=== PATIENT | male | born 1965 | race Caucasian/White ===

== ENCOUNTER 2022-08-30 08:00 | Outpatient (CLI) | payer OTHER ==
--- NOTE | 2022-08-30 17:23 | XRAY Report ---
PROCEDURE: Thoracic Spine 2 View INDICATIONS: STRAIN OF MUSCLE AND TENDON OF UPPER BACK TECHNIQUE: 3 views of the thoracic spine were acquired. COMPARISON: None. FINDINGS: Bones: No fractures or dislocations. Degenerative endplate changes are noted in mid to lower thoraci c spine. No suspicious bony lesions. 12 pairs of ribs are noted, and appear intact where visualized. Soft tissues: No paravertebral stripe thickening. IMPRESSION: Mild degenerative disc disease in mid to lower thoracic spine. No compression fracture or spondylolis thesis. Reviewed by: Ezio Alfredo MD on 08/30/2022 5:22 PM PDT Approved by: Ezio Alfredo MD on 08/30/2022 5:22 PM PDT Station ID: [id number]
== END 2022-08-30 23:59 | disposition home or self-care (01) ==
LOC: DI.N 08:00
PROVIDERS: ATTEND Family Medicine
DX: S29.012A Strain of muscle and tendon of back wall of thorax, initial encounter (principal); M47.814 Spondylosis without myelopathy or radiculopathy, thoracic region

== ENCOUNTER 2024-02-05 00:05 | Emergency (ER) | payer OTHER ==
[2024-02-05 00:26] LABS: BASOPHILS # (AUTO) 0.1 10^3/uL (0.0-0.1); BASOPHILS % (AUTO) 0.4 %; EOSINOPHILS % (AUTO) 0.1 %; HCT - HEMATOCRIT 51.8 % (42.0-52.0); HGB - HEMOGLOBIN 17.4 g/dL (14.0-18.0); LYMPHOCYTES # (AUTO) 0.4 10^3/uL (1.5-3.5); MEAN CORPUSCULAR HEMOGLOBIN 30.1 pg (27.0-31.0); MEAN CORPUSCULAR HGB CONC 33.6 g/dL (32.0-36.0); MEAN CORPUSCULAR VOLUME 89.6 fL (80.0-94.0); MEAN PLATELET VOLUME 9.5 fL (7.4-11.4); MONOCYTES % (AUTO) 7.1 %; PLT - PLATELET COUNT 256 10^3/uL (130-450); RED BLOOD COUNT 5.78 10^6/uL (4.70-6.10); RED CELL DISTRIBUTION WIDTH 12.3 % (12.0-15.0); WHITE BLOOD COUNT 13.5 x10^3/uL (4.8-10.8)
[2024-02-05 00:48] LABS: ALBUMIN/GLOBULIN RATIO 1.7 (1.0-2.2); BILIRUBIN,TOTAL 0.8 mg/dL (0.2-1.0); CALCIUM 10.3 mg/dL (8.5-10.3); CREATININE 1.4 mg/dL (0.6-1.3); POTASSIUM 4.2 mmol/L (3.5-4.5)
[2024-02-05] MEDS: SODIUM CHLORIDE 0.9% 1,000 ML IV STA (00:57)
[2024-02-05] MEDS: ONDANSETRON 4 MG/2 ML VIAL IVP STA (00:57)
[2024-02-05 01:12] LABS: BILIRUBIN,URINE SMALL (NEGATIVE); GLUCOSE, URINE (UA) NEGATIVE (NEGATIVE); KETONES,URINE (UA) TRACE mg/dL (NEGATIVE); LEUKOCYTE ESTERASE, URINE NEGATIVE (NEGATIVE); NITRITE,URINE NEGATIVE (NEGATIVE); OCCULT BLOOD,URINE NEGATIVE (NEGATIVE); PH,URINE 5.5 PH (5.0-7.5); PROTEIN,URINE NEGATIVE (NEGATIVE); UROBILINOGEN,URINE 0.2 (NORMAL) E.U./dL (NORMAL)
--- NOTE | 2024-02-05 01:14 | ED Physician Documentation ---
PD HPI NVD - Stated complaint Stated Complaint: N/V/D - Chief complaint Chief Complaint: Abd Pain - History obtained from History obtained from: Patient, Family - History of Present Illness Timing - onset: Enter time (1899), Today Timing - duration: Hours Timing - details: Abrupt onset, Still present Associated symptoms: Dizzy, Near syncope / syncope. No: Fever, Abdominal pain, Hematochezia Contributing factors: Sick contact Improved by: Vomiting, BM Worsened by: Eating Similar symptoms before: Has not had sx before Recently seen: Not recently seen - Additonal information Additional information: Pop Rojas is a 58-year-old male who presents to the emergency department tonight with acute diarrhea and vomiting. He indicates that he began to feel ill yesterday with some mild nausea and began to have vomiting and diarrhea this evening. He was preceded by his and the symptoms by about 1 week. She has been around others who have been ill as well with similar. She has recovered entirely. Review of Systems Constitutional: denies: Fever Ears: denies: Ear pain Nose: denies: Congestion Throat: denies: Sore throat Cardiac: denies: Chest pain / pressure, Palpitations Respiratory: denies: Dyspnea, Cough GI: reports: Abdominal Pain, Nausea, Vomiting, Diarrhea : denies: Dysuria, Frequency PD PAST MEDICAL HISTORY - Past Medical History Past Medical History: Yes - Present Medications Home Medications: Ambulatory Orders Medication Instructions Recorded Confirmed Lisinopril/Hydrochlorothiazide 1 each PO DAILY 02/05/24 02/05/24 [Zestoretic 20-12.5 mg Tablet] Ondansetron Odt [Zofran] 4 mg TL Q6H PRN #10 tablet 02/05/24 Pramipexole [Mirapex] 0.125 mg PO DAILY 02/05/24 02/05/24 - Allergies Allergies/Adverse Reactions: Allergies Allergy/AdvReac Type Severity Reaction Status Date / Time No Known Drug Allergies Allergy Verified 02/05/24 00:09 - Social History Does the pt smoke?: No Smoking Status: Never smoker Does the pt drink ETOH?: No Does the pt have substance abuse?: No - Immunizations Immunizations are current?: Yes PD ED PE NORMAL - Vitals Vital signs reviewed: Yes (hypertensive diastolic ) - General General: Alert and oriented X 3, No acute distress, Well developed/nourished - HEENT HEENT: Atraumatic, PERRL, EOMI - Neck Neck: Supple, no meningeal sign, No bony TTP - Cardiac Cardiac: RRR, No murmur - Respiratory Respiratory: No respiratory distress, Clear bilaterally - Abdomen Abdomen: Normal bowel sounds, Soft, Non tender, Non distended, No organomegaly - Back Back: No CVA TTP, No spinal TTP - Derm Derm: Normal color, Warm and dry, No rash - Extremities Extremities: No deformity, No edema - Neuro Neuro: Alert and oriented X 3, 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, No motor deficit, No sensory deficit, Normal speech Eye Opening: Spontaneous Motor: Obeys Commands Verbal: Oriented GCS Score: 15 - Psych Psych: Normal mood, Normal affect Results - Vitals Vitals: Vital Signs - 24 hr 02/05/24 02/05/24 02/05/24 00:09 01:45 02:00 Temperature 36.8 C Heart Rate 88 92 95 Respiratory 16 93 H 16 Rate Blood Pressure 126/86 H 125/91 H 117/65 O2 Saturation 100 95 96 02/05/24 03:09 Temperature Heart Rate 98 Respiratory 16 Rate Blood Pressure 120/77 O2 Saturation 96 Oxygen O2 Source Room air - Labs Labs: Laboratory Tests 02/05/24 02/05/24 02/05/24 00:19 00:19 01:00 WBC 13.5 H RBC 5.78 Hgb 17.4 Hct 51.8 MCV 89.6 MCH 30.1 MCHC 33.6 RDW 12.3 Plt Count 256 MPV 9.5 Neut # (Auto) 12.0 H Lymph # (Auto) 0.4 L [place] # (Auto) 1.0 Eos # (Auto) 0.0 Baso # (Auto) 0.1 Absolute Nucleated RBC 0.00 Nucleated RBC % 0.0 Sodium 136 Potassium 4.2 Chloride 97 L Carbon Dioxide 26 Anion Gap 13.0 BUN 25 H Creatinine 1.4 H Estimated GFR (MDRD) 52 L Glucose 155 H Calcium 10.3 Total Bilirubin 0.8 AST 24 ALT 33 Alkaline Phosphatase 79 Total Protein 8.0 Albumin 5.0 Globulin 3.0 Albumin/Globulin Ratio 1.7 Lipase 45 Urine Color DARK YELLOW Urine Clarity CLEAR Urine pH 5.5 Ur Specific [place] >=1.030 H Urine Protein NEGATIVE Urine Glucose (UA) NEGATIVE Urine Ketones TRACE Urine Occult Blood NEGATIVE Urine Nitrite NEGATIVE Urine Bilirubin SMALL H Urine Urobilinogen 0.2 (NORMAL) Ur Leukocyte Esterase NEGATIVE Ur Microscopic Review NOT INDICATED Urine Culture Comments NOT INDICATED PD Medical Decision Making - ED course Complexity details: reviewed results, re-evaluated patient, considered differential, d/w patient, d/w family Reviewed Lab Results: We reviewed a complete blood count showing an elevated white blood cell count of 13.5 and normal hemoglobin hematocrit and platelets. Indices were also normal. Evaluation of the chemistry showed normal electrolytes and elevated BUN and creatinine at 25 and 1.4 with no prior comparisons this gives an estimated GFR of 52. Glucose mildly elevated at 155 no prior comparisons liver functions were normal.I reviewed these laboratory values found in the white blood cell count elevated at 13.5 to be consistent with the possibility of a viral gastroenteritis. The elevated BUN and creatinine would be consistent with dehydration however I believe the patient has not been ill long enough to cause this level of dehydration and I am concerned about underlying renal insufficiency. There are no prior for comparison. The patient denies any history of diabetes. He does have an elevated blood sugar and there is no evidence of glucose in the urine. My interpretation of these results are the patient could have early type 2 diabetes. ED course: 58-year-old male with a gastroenteritis is administered IV saline and Zofran and feels improved. We will send him home with some Zofran tonight and provide some additional Zofran by prescription. Departure - Departure Disposition: 01 Home, Self Care Clinical Impression: Viral gastroenteritis Condition: Stable Instructions: ED Gastroenteritis Viral Follow-Up: DEONTE WILKINS, [Primary Care Provider] - Prescriptions: Ondansetron Odt [Zofran] 4 mg TL Q6H PRN #10 tablet PRN Reason: Nausea / Vomiting Comments: Pop, today it looks like you have a viral gastroenteritis and our expectation with this is that should resolve by itself within 1 to 3 days. Staying hydrated is imperative to rapid improvement. Today we are able to give you some Zofran which appeared to help with the nausea. I have E scribed additional Zofran to the [facility] in [place]. Today on your laboratory work we found that you appear to have some mild renal insufficiency and a mild elevation in your blood sugar. These values should be rechecked when you are not ill. Follow-up with your primary care doctor. Forms: PCP List Discharge Date/Time: 02/05/24 03:10
[2024-02-05 01:22] LABS: CLARITY,URINE CLEAR (CLEAR)
[2024-02-05] MEDS: MAG HYDROX/AL HYDROX/SIMETH 30 ML UDC PO STA (01:43)
[2024-02-05 02:45] VITALS: O2SAT 96
[2024-02-05] MEDS ORDERED: ONDANSETRON ODT 4 MG Prepack 2 TL PRN (02:45)
[2024-02-05 03:14] VITALS: BP 120/77
== END 2024-02-05 03:10 | disposition home or self-care (01) ==
LOC: ED 00:05
DX: A08.4 Viral intestinal infection, unspecified (principal); Z79.899 Other long term (current) drug therapy
CPT/HCPCS: 36415; 80053; 81003; 83690; 85025; 96361; 96374; 99283; 99284; A9270; 81001; 87086